=== PATIENT | female | born 1975 | race Caucasian/White ===

== ENCOUNTER 2021-07-05 17:13 | Outpatient (CLI) | payer OTHER, SELFPAY ==
--- NOTE | ~2021-07-05 | CT_ITS ---
EXAMINATION: CT sinus wo con DATE: 07/05/2021 17:38 INDICATION: Chronic sinusitis TECHNIQUE: Computed tomography (CT) of the paranasal sinuses was performed without contrast. Iterativ e reconstruction technique was employed. Exam dose: 303.98 mGy-cm total exam DLP. COMPARISON: None FINDINGS: There is prominent rightward deviation of nasal septum. There is soft tissue swelling of th e nasal turbinates, more prominent on the left. Interlamellar cell of the left middle nasal turbinate . The ostiomeatal units are patent. 12 mm mucous retention cyst or polyp and 5 mm mucus retention cysts or polyps in the lower right axil la sinus. Minimal mucoperiosteal thickening in the lower left maxillary sinus. The ethmoid air cells and frontal and sphenoid sinuses are otherwise unremarkable. The mastoid air cells are normally developed and well-aerated. IMPRESSION: Prominent rightward deviation of nasal septum Intraluminal cell of left middle nasal turbinate Soft tissue swelling of the nasal turbinates Small mucosal retention cysts or polyps in the right maxillary sinus, minimal mucoperiosteal thickeni ng of the lower left maxillary sinus; the paranasal sinuses and mastoid air cells are otherwise unrem [facility] Reviewed, dictated and finalized at [facility]. Reviewed, dictated and finalized at [facility]. IMPRESSION: Prominent rightward deviation of nasal septum Intraluminal cell of left middle nasal turbinate Soft tissue swelling of the nasal turbinates Small mucosal retention cysts or polyps in the right maxillary sinus, minimal m ucoperiosteal thickening of the lower left maxillary sinus; the paranasal sinus es and mastoid air cells are otherwise unremarkable
== END 2021-07-05 17:14 | disposition home or self-care (01) ==
LOC: ANHIMG 17:19
PROVIDERS: Visit Provider Otolaryngology
DX: J32.9 Chronic sinusitis, unspecified (principal); M79.89 Other specified soft tissue disorders; J34.2 Deviated nasal septum
CPT/HCPCS: 70486